=== PATIENT | female | born 1990 | race Caucasian/White ===

== ENCOUNTER 2017-03-05 21:36 | Emergency (ER) | payer MEDICAID ==
[~2017-03-05] VITALS: Ht 154.9 cm; Wt 85.7 kg
[~2017-03-05 21:36] MED LIST: BENADRYL 25MG; BENADRYL50 MG PO; NORCO 5/325 MG1 TAB PO; PHENERGAN25 M3 PO; PHENERGAN25 MG RC; VICODIN 5/500 M1 TAB PO
[2017-03-05 21:44] VITALS: BP 105/69
--- NOTE | 2017-03-05 23:46 | NUR ---
PATIENT LEFT WITHOUT BEING SEEN BY DR. PINA. NO FURTHER CARE PROVIDED FOR PATIENT.
== END 2017-03-05 23:45 | disposition left against medical advice (07) ==
LOC: MED 21:36
DX: R10.9 Unspecified abdominal pain (principal); Z53.21 Procedure and treatment not carried out due to patient leaving prior to being seen by health care provider